=== PATIENT | male | born 1960 | race Caucasian/White ===

== ENCOUNTER → 2017-01-12 | Outpatient (CLI) | payer BC ==
[2017-01-12 07:51] LABS: ALANINE AMINOTRANSFERASE 29 IU/L (13-61); ALBUMIN 3.6 g/dL (3.4-5.0); ANION GAP 11; CALCIUM 8.5 mg/dL (8.5-10.1); CARBON DIOXIDE 29 mEq/L (21-32); CHLORIDE 105 mEq/L (98-107); HDL CHOLESTEROL 54 mg/dL (40-59); INDEX HEMOLYSI 1 (1-3); INDEX ICTERIC 1 (1-4); INDEX LIPEMIC 1 (1-3); LDL CHOLESTEROL 115 mg/dL (5-100); T4 FREE 0.94 ng/dL (0.76-1.46); TRIGLYCERIDE 169 mg/dL (0-150); UREA NITROGEN BLOOD 22 mg/dL (7-21); eGFR > 60 mL/min (>60)
[2017-01-12 07:56] LABS: T3 FREE 3.01 pg/ml (2.18-3.98)
[2017-01-13 08:40] LABS: TOTAL VOLUME 24 HR 3000 mL
== END | disposition home or self-care (01) ==
LOC: LAB 06:47
PROVIDERS: ATTEND Family Medicine
DX: Z13.21 Encounter for screening for nutritional disorder (principal); R80.9 Proteinuria, unspecified; Z79.899 Other long term (current) drug therapy
CPT/HCPCS: 36415; 80053; 80061; 83036; 84156; 84439; 84443; 84481

== ENCOUNTER → 2017-03-31 | Outpatient (CLI) | payer BC ==
[2017-03-31 06:52] LABS: EOSINOPHILS % 3.4 % (0.0-5.0); HEMATOCRIT. 45.3 % (42.0-52.0); HEMOGLOBIN. 15.8 g/dL (14.0-18.0); MEAN CORPUSCULAR VOLUME 89.1 fL (80.0-94.0); MEAN PLATELET VOLUME 8.6 fl (7.4-10.4); MONOCYTES % 10.1 % (2.0-8.0); NEUTROPHILS % 48.5 % (40.0-76.0); PLATELET 209 x1000/uL (130-400); RED BLOOD CELL COUNT 5.08 mill/uL (4.7-6.1); RED CELL DISTRIBUTION WIDTH 12.7 % (11.6-14.6)
[2017-03-31 07:18] LABS: CARBON DIOXIDE 29 mEq/L (21-32); CHLORIDE 106 mEq/L (98-107); HDL CHOLESTEROL 48 mg/dL (40-59); LDL CHOLESTEROL 128 mg/dL (5-100); T4 FREE 0.91 ng/dL (0.76-1.46)
== END | disposition home or self-care (01) ==
LOC: US 06:33
PROVIDERS: ATTEND Family Medicine
DX: E11.21 Type 2 diabetes mellitus with diabetic nephropathy (principal)
CPT/HCPCS: 36415; 76770; 80053; 80061; 83036; 84439; 84443; 84481; 85025

== ENCOUNTER → 2025-09-20 | Outpatient (CLI) | payer BC | END | disposition home or self-care (01) | LOC: LAB 09:24 | PROVIDERS: ATTEND Urology | DX: R97.20 Elevated prostate specific antigen [PSA] (principal) | CPT/HCPCS: 84153 ==

== ENCOUNTER → 2025-09-24 | Outpatient (CLI) | payer BC ==
[2025-09-24 08:21] LABS: CREATININE 1.1 mg/dL (0.6-1.3); UREA NITROGEN BLOOD 15 mg/dL (9-23)
== END | disposition home or self-care (01) ==
LOC: LAB 07:35
PROVIDERS: ATTEND Family Medicine
DX: R97.20 Elevated prostate specific antigen [PSA] (principal)
CPT/HCPCS: 36415; 82565; 84153; 84520

== ENCOUNTER → 2025-09-26 | Outpatient (CLI) | payer BC ==
[~2025-09-26] MED LIST: GADOTERATE MEGLUMINE 5 MMOL/10 ML VIAL IV ONE
== END | disposition home or self-care (01) ==
LOC: MRI 09:01
PROVIDERS: ATTEND Family Medicine
DX: N41.1 Chronic prostatitis (principal); R97.20 Elevated prostate specific antigen [PSA]; N32.89 Other specified disorders of bladder
CPT/HCPCS: 72197; A9577